=== PATIENT | male | born 1990 | race Caucasian/White ===

== ENCOUNTER 2017-12-07 12:44 | Emergency (ER) | payer MEDICAID ==
[~2017-12-07] VITALS: Ht 185.4 cm; Wt 88.5 kg
[2017-12-07 13:27] VITALS: BP 130/92
== END 2017-12-07 15:21 | disposition left against medical advice (07) ==
LOC: ER 12:44
DX: A53.9 Syphilis, unspecified (principal); Z53.21 Procedure and treatment not carried out due to patient leaving prior to being seen by health care provider

== ENCOUNTER 2021-08-02 09:40 | Emergency (ER) | payer MEDICAID ==
[~2021-08-02] VITALS: Ht 162.6 cm; Wt 81.6 kg
[2021-08-02 10:11] VITALS: BP 134/76
== END 2021-08-02 11:58 | disposition left against medical advice (07) ==
LOC: ER 09:40
DX: R10.9 Unspecified abdominal pain (principal); R11.2 Nausea with vomiting, unspecified; R19.7 Diarrhea, unspecified; Z53.21 Procedure and treatment not carried out due to patient leaving prior to being seen by health care provider